=== PATIENT | male | born 1990 | race Hispanic/Latino ===

== ENCOUNTER 2020-08-17 15:34 | Emergency (ER) | payer OTHER ==
[~2020-08-17] VITALS: Ht 170.2 cm; Wt 75.0 kg
[2020-08-17] MEDS ORDERED: NAPROXEN500 MG PO (16:28)
[2020-08-17 17:10] VITALS: BP 138/67
== END 2020-08-17 17:10 | disposition home or self-care (01) | DRG 563 ==
LOC: ED 15:34
DX: S43.401A Unspecified sprain of right shoulder joint, initial encounter (principal); W18.39XA Other fall on same level, initial encounter; Y93.69 Activity, other involving other sports and athletics played as a team or group; Y92.833 Campsite as the place of occurrence of the external cause